=== PATIENT | female | born 1965 | race Caucasian/White ===

== ENCOUNTER → 2018-06-29 12:16 | Outpatient (CLI) | payer OTHER, SELFPAY ==
--- NOTE | 2018-06-29 | DI.MG.S_ITS ---
BILATERAL DIGITAL SCREENING MAMMOGRAM 3D/2D WITH CAD: 06/29/2018 CLINICAL: Routine screening. Family history of breast cancer. Comparison is made to exams dated: 03/26/2017 mammogram, 11/14/2015 mammogram, and 09/27/2014 mammogram - [facility]. The tissue of both breasts is extremely dense, which lowers the sensitivity of mammography. Current study was also evaluated with a Computer Aided Detection (CAD) system. There are benign calcifications in both breasts. There also is a benign biopsy clip in the left breast. No significant masses, calcifications, or other findings are seen in either breast. There has been no significant interval change. IMPRESSION: There is no mammographic evidence of malignancy. A 1 year screening mammogram is recommended. This exam was interpreted at Station ID: [id number]. NOTE: For mammograms, a report in lay terms will be sent to the patient. Approximately 15% of breast malignancies will not be visualized mammographically. In the management of a palpable breast mass, a negative mammogram must not discourage biopsy of a clinically suspicious lesion. Electronically Signed By: John hopper/kellie:06/29/2018 18:07:08 letter sent: Normal Exam ACR BI-RADS Category 2: Benign Finding(s) 3342F
== END ==
PROVIDERS: Visit Provider Physician Assistant Medical
DX: Z12.31 Encounter for screening mammogram for malignant neoplasm of breast (principal); Z80.3 Family history of malignant neoplasm of breast
CPT/HCPCS: 77063; 77067

== ENCOUNTER → 2018-10-06 14:44 | Outpatient (CLI) | payer OTHER, SELFPAY ==
--- NOTE | 2018-10-06 14:49 | DI.RAD.S_ITS ---
PROCEDURE: XR WRIST LT MIN 3V INDICATIONS: left wrist pain TECHNIQUE: 4 views of the wrist were acquired. COMPARISON: None. FINDINGS: Bones: No fractures or dislocations. No suspicious bony lesions. Scaphoid view: No trauma. Soft tissues: No suspicious soft tissue calcifications. IMPRESSION: No trauma found. Dictated by: Von Glass M.D. on 10/06/2018 at 15:10 Approved by: Von Glass M.D. on 10/06/2018 at 15:10
--- NOTE | 2018-10-06 14:49 | DI.RAD.S_ITS ---
PROCEDURE: XR HIP W PEL IF DONE LT MIN 4V INDICATIONS: hip pain TECHNIQUE: AP pelvis with lateral view(s) of the bilateral hip(s). COMPARISON: None. FINDINGS: Bones: No fractures or dislocations. Pelvic ring appears intact. No suspicious bony lesions. Soft tissues: The visualized bowel gas pattern is normal. No suspicious soft tissue calcifications. IMPRESSION: Symmetric bilateral mild hip joint osteoarthritis. Dictated by: Von Glass M.D. on 10/06/2018 at 15:11 Approved by: Von Glass M.D. on 10/06/2018 at 15:12
--- NOTE | 2018-10-06 14:49 | DI.RAD.S_ITS ---
PROCEDURE: XR ELBOW LT MIN 3V INDICATIONS: left elbow pain TECHNIQUE: 3 views of the elbow were acquired. COMPARISON: None. FINDINGS: Bones: No fractures or dislocations. No suspicious bony lesions. Soft tissues: No elbow joint effusion. No suspicious soft tissue calcifications. IMPRESSION: No trauma found. Dictated by: Von Glass M.D. on 10/06/2018 at 15:10 Approved by: Von Glass M.D. on 10/06/2018 at 15:10
== END ==
PROVIDERS: PCP Physician Assistant Medical; Visit Provider Physician Assistant
DX: M25.522 Pain in left elbow (principal); M25.532 Pain in left wrist; M25.552 Pain in left hip; M16.0 Bilateral primary osteoarthritis of hip
CPT/HCPCS: 73080; 73110; 73522